=== PATIENT | male | born 1945 | race Caucasian/White ===

== ENCOUNTER 2025-03-28 09:19 | Emergency (ER) | payer MEDICARE ==
[2025-03-28] MEDS ORDERED: HYDROcodone/Acetaminophen 5/325 mg Tablet ONE (09:43)
== END 2025-03-28 10:25 | disposition home or self-care (01) ==
LOC: MADERS 09:19
DX: M25.512 Pain in left shoulder (principal); W22.8XXA Striking against or struck by other objects, initial encounter; Z87.891 Personal history of nicotine dependence
CPT/HCPCS: 99283